=== PATIENT | female | born 1935 | race Caucasian/White ===

== ENCOUNTER 2017-07-14 22:11 | Inpatient (IN) | payer OTHER, MEDICARE ==
[~2017-07-14] VITALS: Ht 152.4 cm; Wt 52.5 kg
[2017-07-14 23:18] LABS: HEMATOCRIT 44.3 % (36.0-46.0); MCH 29.4 PG (29.0-34.0); MCHC 32.5 G/DL (30.0-36.0); MCV 90.6 FL (83-99); MEAN PLAT.VOLUME 10.7 uM^3 (9.5-12.4); PLATELET COUNT 200 K/uL (156-360); RBC DIS.WIDTH-CV 14.4 % (11.8-14.6); RBC DIS.WIDTH-SD 48.2 % (39-53); RED BLOOD COUNT 4.89 M/uL (3.80-5.20); WHITE BLOOD COUNT 6.9 K/uL (4.1-10.2)
[2017-07-14 23:28] LABS: CHLORIDE 107 mEq/L (99-109); POTASSIUM 4.2 mEq/L (3.7-5.4); SODIUM 143 mEq/L (136-147)
[2017-07-14 23:30] LABS: GLUCOSE 132 mg/dL (70-99)
[2017-07-14 23:31] LABS: ANION GAP 9 MEQ/L (2-14)
[2017-07-14 23:32] LABS: TOTAL BILIRUBIN 0.8 mg/dL (0.0-1.0)
[2017-07-14 23:33] LABS: ALKALINE PHOSPHATASE 95 IU/L (3-129)
[2017-07-14 23:35] LABS: UREA NITROGEN (BUN) 25 mg/dL (9-23)
[2017-07-14 23:37] LABS: LIPASE 95 U/L (1.0-51.0)
[2017-07-14 23:40] LABS: TROP-I INTERPRETATION NEGATIVE; TROPONIN-I < 0.01 ng/mL (0.0-0.30)
[2017-07-14 23:42] LABS: GFR ESTIMATE (CALCULATED) 45 mL/min/
[2017-07-15 00:18] LABS: ADD MIUA? YES; BILIRUBIN NEGATIVE; BLOOD SMALL; COLOR YELLOW ((YELLOW)); GLUCOSE (STRIP) NEGATIVE; KETONES NEGATIVE; LEUKOCYTES LARGE; NITRITE POSITIVE; PROTEIN (STRIP) 30; SPECIFIC GRAVITY 1.011 (1.000-1.030)
[2017-07-15 00:36] LABS: BACTERIA 3+ /HPF; CASTS NONE SEEN /LPF; CRYSTALS NONE SEEN; EPITHELIAL CELLS 3+ /HPF; MUCUS NONE SEEN /LPF; RED BLOOD CELLS 0-5 /HPF (0-5); UCUL ADDED? YES; WHITE BLOOD CELLS TNTC /HPF (0-5)
[2017-07-15] MEDS ORDERED: FUROSEMIDE20 MG PO (01:41)
[2017-07-15] MEDS ORDERED: ADULT MULTI G200 MCG PO (01:42)
[2017-07-15] MEDS ORDERED: PAXIL10 MG PO (01:42)
[2017-07-15] MEDS ORDERED: LISINOPRIL10 MG PO (01:42)
[2017-07-15] MEDS ORDERED: MIRALAX255 GM PO (01:42)
[2017-07-15] MEDS ORDERED: ATIVAN0.5 MG PO (01:43)
[2017-07-15] MEDS ORDERED: SEROQUEL12.5 MG PO (01:43)
[2017-07-15] MEDS ORDERED: KLOR-CON M1010 MEQ PO (01:43)
[2017-07-15] MEDS ORDERED: COLACE100 MG PO (01:43)
[2017-07-15 03:40] VITALS: BP 116/73
[2017-07-15 07:05] VITALS: BP 132/83
[2017-07-15 11:26] VITALS: BP 116/62
[2017-07-15 15:46] VITALS: BP 143/74
[2017-07-15 23:47] VITALS: BP 113/60
[2017-07-16 05:25] VITALS: BP 110/65
[2017-07-16 06:39] LABS: ALKALINE PHOSPHATASE 71 IU/L (3-129); ANION GAP 6 MEQ/L (2-14); CHLORIDE 105 MEQ/L (99-109); GFR ESTIMATE (CALCULATED) > 59 mL/min/; GLUCOSE 105 mg/dL (70-99); LIPASE 111 U/L (1.0-51.0); POTASSIUM 3.6 MEQ/L (3.7-5.4); SAMPLE HEMOLYSIS CHECK 0; SAMPLE ICTERIC CHECK 0; SAMPLE LIPEMIA CHECK 0; SODIUM 137 MEQ/L (136-147); TOTAL BILIRUBIN 0.5 MG/DL (0.0-1.0); UREA NITROGEN (BUN) 15 mg/dL (9-23)
[2017-07-16 07:10] VITALS: BP 140/83
[2017-07-16 15:24] LABS: AMYLASE 70 IU/L (1-118)
[2017-07-16 16:05] VITALS: BP 94/63
[2017-07-17 00:02] VITALS: BP 119/65
[2017-07-17 07:00] VITALS: BP 118/73
[2017-07-17 12:13] VITALS: BP 120/70
[2017-07-17 16:20] VITALS: BP 112/60
[2017-07-17 23:48] VITALS: BP 128/74
[2017-07-18 06:41] VITALS: BP 125/68
[2017-07-18 15:00] VITALS: BP 130/76
[2017-07-18 23:44] VITALS: BP 175/79
[2017-07-19 07:18] VITALS: BP 129/70
[2017-07-19 15:05] VITALS: BP 145/80
== END 2017-07-19 18:35 | DRG 690 ==
LOC: EDBD 22:11 → EME 22:11 → 2EAST 07-15 01:30 → EDOF 07-15 01:30 → ENRESERV 07-15 01:48 → 2EAST 07-15 03:40
PROVIDERS: Emergency Medicine; Internal Medicine
DX: N30.01 Acute cystitis with hematuria (principal); F05 Delirium due to known physiological condition; K86.2 Cyst of pancreas; F33.9 Major depressive disorder, recurrent, unspecified; I10 Essential (primary) hypertension; E86.0 Dehydration; E11.9 Type 2 diabetes mellitus without complications; E78.5 Hyperlipidemia, unspecified; E87.6 Hypokalemia; E86.1 Hypovolemia; G30.9 Alzheimer's disease, unspecified; F02.80 Dementia in other diseases classified elsewhere, unspecified severity, without behavioral disturbance, psychotic disturbance, mood disturbance, and anxiety; K86.89 Other specified diseases of pancreas; B96.89 Other specified bacterial agents as the cause of diseases classified elsewhere; Z90.710 Acquired absence of both cervix and uterus; Z85.3 Personal history of malignant neoplasm of breast; Z82.49 Family history of ischemic heart disease and other diseases of the circulatory system
CPT/HCPCS: 74170; 74183; 80053; 81003; 82150; 83690; 84484; 85027; 86301 90; 87077; 87086; 87186; 93005; 99281; 99285; J0696; J1650; J7030